=== PATIENT | female | born 1995 | race Caucasian/White ===

== ENCOUNTER 2021-01-13 17:05 | Emergency (ER) | payer OTHER ==
[~2021-01-13] VITALS: Ht 167.6 cm; Wt 63.5 kg
[2021-01-13] MEDS ORDERED: ONDANSETRON ODT8 MG PO (19:26)
== END 2021-01-13 20:06 | disposition home or self-care (01) ==
LOC: ED 17:05
DX: S06.0X9A Concussion with loss of consciousness of unspecified duration, initial encounter (principal); F41.9 Anxiety disorder, unspecified; S80.212A Abrasion, left knee, initial encounter; S40.212A Abrasion of left shoulder, initial encounter; S70.211A Abrasion, right hip, initial encounter; V49.9XXA Car occupant (driver) (passenger) injured in unspecified traffic accident, initial encounter
CPT/HCPCS: 80053; 83690; 85025; 96374; 96375; 99284-25; J2060; J2405; J7030

== ENCOUNTER 2024-03-05 23:36 | Inpatient (IN) | payer OTHER ==
[~2024-03-05] VITALS: Ht 167.6 cm; Wt 91.6 kg
[~2024-03-05 23:36] MED LIST: ONDANSETRON ODT8 MG PO
[2024-03-06] MEDS ORDERED: CALCIUM CARBONATE 500 MG CHEW PO PRN (00:15)
[2024-03-06] MEDS ORDERED: OXYTOCIN/DEXTROSE 5% 20 UNITS/100 ML BAG IV SCH (00:15)
[2024-03-06] MEDS ORDERED: MAGNESIUM HYDROXIDE/AL HYDROX 30 ML CUP PO PRN (00:15)
[2024-03-06 00:28] LABS: HEMATOCRIT 36.3 % (35.0-50.0); HEMOGLOBIN 12.5 g/dL (12.0-18.0); MCHC 34.5 g/dl (30-36); MCV 86.9 fl (81-99); RBC 4.18 M/ul (4.3-5.7); RDW 14.3 (10.5-15.0)
[2024-03-06 00:48] LABS: AMPHETAMINES, URINE NEGATIVE (NEGATIVE); BARBITURATES, URINE NEGATIVE (NEGATIVE); BENZODIAZEPINE, URINE NEGATIVE (NEGATIVE); BUPRENORPHINE, URINE NEGATIVE (NEGATIVE); CANNABINOID, URINE NEGATIVE (NEGATIVE); COCAINE, URINE NEGATIVE (NEGATIVE); ECSTASY, URINE NEGATIVE (NEGATIVE); FENTANYL, URINE NEGATIVE (NEGATIVE); METHADONE, URINE NEGATIVE (NEGATIVE); OPIATES, URINE NEGATIVE (NEGATIVE); OXYCODONE, URINE NEGATIVE (NEGATIVE); PHENCYCLIDINE, URINE NEGATIVE (NEGATIVE)
[2024-03-06 00:57] VITALS: BP 129/78
[2024-03-06 01:08] LABS: ABO A; ANTIBODY SCREEN NEGATIVE; RH NEGATIVE
[2024-03-06] MEDS ORDERED: LACTATED RINGER'S 1,000 ML IV SCH (02:00)
[2024-03-06] MEDS ORDERED: LACTATED RINGER'S 1,000 ML IV PRN (02:00)
[2024-03-06] MEDS ORDERED: ROPIVACAINE 0.2% 200 ML BAG ONE (02:25)
[2024-03-06] MEDS ORDERED: ePHEDrine sulfate 5 MG/ML SYRINGE IV PRN (03:15)
[2024-03-06] MEDS ORDERED: ROPIVACAINE 0.2% 200 ML BAG EPIDURAL SCH (03:15)
[2024-03-06] MEDS ORDERED: LACTATED RINGER'S 500 ML IV PRN (03:15)
[2024-03-06] MEDS ORDERED: LACTATED RINGER'S 2,000 ML IV ONE (03:15)
[2024-03-06] MEDS ORDERED: OXYTOCIN/0.9 % SODIUM CHLORIDE 500 ML IV SCH ×2 (07:30→09:45)
[2024-03-06] MEDS ORDERED: IBUPROFEN 600 MG TAB PO PRN (09:45)
[2024-03-06] MEDS ORDERED: MAGNESIUM HYDROXIDE 30 ML UDC PO PRN (09:45)
[2024-03-06] MEDS ORDERED: ACETAMINOPHEN 325 MG TAB PO PRN (09:45)
[2024-03-06] MEDS ORDERED: WITCH HAZEL/GLYCERIN 1 EA PAD TOP PRN (09:45)
[2024-03-06] MEDS ORDERED: BENZOCAINE 60 ML AEROSOL TOP PRN (09:45)
[2024-03-06] MEDS ORDERED: HYDROCORTISONE ACETATE 25 MG SUPP PR PRN (09:45)
[2024-03-06] MEDS ORDERED: HYDROCODONE/ACETA 5/325 TAB PO PRN (09:45)
[2024-03-07 05:57] LABS: HEMATOCRIT 29.5 % (35.0-50.0); MCH 30.3 (27-36); MCHC 33.9 g/dl (30-36); MCV 89.4 fl (81-99); RBC 3.3 M/ul (4.3-5.7); RDW 14.6 (10.5-15.0)
[2024-03-07 07:20] LABS: ABO A; ANTIBODY SCREEN NEGATIVE; FETAL HEMOGLOBIN SCREEN NEGATIVE; RH NEGATIVE; RHIG DOSE 1; RHIG STATUS CANDIDATE; RHIG VIAL 1 RG23O03-R
--- NOTE | 2024-03-07 07:26 | PR ---
[facility] [address] [facility] [address] [facility] [place], [place] [address] Signed PP Progress Notes Datetime Report Generated by CPN: 03/07/2024 07:26 SUBJECTIVE: [id number] Pain: Within Normal Limits Vital Signs: [id number] Vital Signs: Reviewed; Within Normal Limits EXAM: Ongoing Cardiovascular: Not Done Respiratory: Not Done Abdomen/Uterus: Abnormal Lochia: Normal Vulva/Perineum: Normal Breasts: Not Done CVA Tenderness: Not Done Extremities: Normal Incision: Not Applicable Progress: Abnormal Exam Comments: Fundus firm, NT @ U-2. H/H 04/19.5, WBC 13.7, plat 142k IMPRESSION/PLAN/PROCEDURES: [id number] Impression: Normal Progression; Difficulties Plan: Consult Progress Notes: Tired and breast feeding not going well. I think she would benefit from another day of rest w/ help. Her vulvar swelling has resolved but no void as yet. Thrombocytopenia--min changed from admit. Suspect gestational thrombocytopenia. Signing Physician: Lakeshia Morales MD Copies: ~ *Electronically Signed* 03/07/24 0726 LAKESHIA MORALES MD PATIENT NAME: NAYANA VYAS PROGRESS NOTE DATE OF : 89 PHYSICIAN: LAKESHIA MORALES MD RPT #: [id number] REPORT IS CONFIDENTIAL AND NOT TO BE RELEASED WITHOUT AUTHORIZATION
--- NOTE | 2024-03-08 07:14 | PR ---
[facility] [address] [facility] [place], [place] [address] Signed PP Progress Notes Datetime Report Generated by CPN: 03/08/2024 07:14 SUBJECTIVE: [id number] Pain: Within Normal Limits Vital Signs: [id number] Vital Signs: Reviewed; Within Normal Limits EXAM: Ongoing Cardiovascular: Not Done Respiratory: Not Done Abdomen/Uterus: Abnormal Lochia: Normal Vulva/Perineum: Not Done Breasts: Not Done CVA Tenderness: Not Done Extremities: Normal Incision: Not Applicable Progress: Abnormal Exam Comments: Fundus firm, NT @ U-2. IMPRESSION/PLAN/PROCEDURES: [id number] Impression: Normal Progression; Difficulties Plan: Discharge Procedures: Rhogam Progress Notes: Feeling much better today. She got some rest. She is still having issues with but feels better about this. Signing Physician: Lakeshia Morales MD Copies: ~ *Electronically Signed* 03/08/24713 LAKESHIA MORALES MD PATIENT NAME: NAYANA VYAS PROGRESS NOTE DATE OF : [birth year] PHYSICIAN: LAKESHIA MORALES MD RPT #: [id number] REPORT IS CONFIDENTIAL AND NOT TO BE RELEASED WITHOUT AUTHORIZATION
== END 2024-03-08 13:05 | disposition home or self-care (01) | DRG 807 ==
LOC: FBCO 23:36 → FBC 23:38
PROVIDERS: ADMIT Obstetrics & Gynecology; ATTEND Obstetrics & Gynecology
PROC: 10E0XZZ Delivery of Products of Conception, External Approach (ICD-10-PCS; principal; 2024-03-06)
PROC: 0KQM0ZZ Repair Perineum Muscle, Open Approach (ICD-10-PCS; 2024-03-06)
PROC: 3E0R3BZ Introduction of Anesthetic Agent into Spinal Canal, Percutaneous Approach (ICD-10-PCS; 2024-03-06)
PROC: 00HU33Z Insertion of Infusion Device into Spinal Canal, Percutaneous Approach (ICD-10-PCS; 2024-03-06)
PROC: 10907ZC Drainage of Amniotic Fluid, Therapeutic from Products of Conception, Via Natural or Artificial Opening (ICD-10-PCS; 2024-03-06)
DX: O63.1 Prolonged second stage (of labor) (principal); Z37.0 Single live birth; Z3A.40 40 weeks gestation of pregnancy; O48.0 Post-term pregnancy; O77.0 Labor and delivery complicated by meconium in amniotic fluid; O70.1 Second degree perineal laceration during delivery
CPT/HCPCS: 01960; 36415; 80307; 83030; 85027; 86850; 86900; 86901; A9270; J2790; J7121

== ENCOUNTER 2024-04-03 04:26 | Emergency (ER) | payer OTHER ==
[~2024-04-03] VITALS: Ht 167.6 cm; Wt 79.0 kg
[2024-04-03 04:57] LABS: BASOPHILS 0.5 % (0-2); EOSINOPHILS 2.3 % (0-6); HEMATOCRIT 37.1 % (35.0-50.0); HEMOGLOBIN 12.8 g/dL (12.0-18.0); MCH 30.1 (27-36); MCHC 34.5 g/dl (30-36); MCV 87.2 fl (81-99); NEUTROPHILS 73.2 % (39-80); PLATELET COUNT 192 K/uL (140-440); RBC 4.25 M/ul (4.3-5.7); RDW 14.1 (10.5-15.0)
[2024-04-03] MEDS ORDERED: HYDROCODON-ACE1 EA10 PO ×2 (04:58→07:31)
[2024-04-03] MEDS ORDERED: IBUPROFEN600 MG PO (04:58)
[2024-04-03] MEDS ORDERED: FAMOTIDINE 20 MG/ 2 ML VIAL IV ONE (05:00)
[2024-04-03] MEDS ORDERED: MORPHINE SULFATE 4 MG/ML VIAL IV ONE (05:00)
[2024-04-03 05:15] LABS: ALBUMIN 3.6 g/dL (3.4-5.0); ALKALINE PHOSPHATASE 82 U/L (46-116); ALT (SGPT) 21 U/L (14-59); ANION GAP 15.1 (7-21); AST (SGOT) 13 U/L (15-37); BILIRUBIN, TOTAL 0.9 ng/dL (0.2-1.0); BUN/CREATININE RATIO 16.17 (6.0-28.6); CALCIUM 9.1 mg/dL (8.5-10.1); CARBON DIOXIDE 25 mmol/L (21-32); CHLORIDE 103 mmol/L (98-107); CREATININE, SERUM 0.68 mg/dL (0.55-1.02); GLOMERULAR FILTRATION RATE,EST 122 mL/min (>60); POTASSIUM 4.1 mmol/L (3.5-5.1); PROTEIN, TOTAL 7.2 g/dL (6.4-8.2); UREA NITROGEN 11 mg/dL (7-18)
[2024-04-03] MEDS ORDERED: HYDROmorphone HCL 1 MG/ML SYR IV PRN (06:00)
[2024-04-03] MEDS ORDERED: ELIQUIS5 MG PO (07:29)
[2024-04-03] MEDS ORDERED: APIXABAN 5 MG TAB PO ONE (07:30)
[2024-04-03 07:49] VITALS: BP 103/89
--- NOTE | 2024-04-04 07:59 | EKG ---
[facility] [address] [facility] [place] [address] Signed Normal sinus rhythm Normal ECG No previous ECGs available Confirmed by Cindy Garcia MD () on 04/04/2024 7:59:41 AM Electronically Signed By: CINDY GARCIA MD 04/04/24 0759 PATIENT NAME: NAYANA VYAS Electrocardiogram DATE OF : [birth year] PHYSICIAN: CINDY GARCIA MD REPORT #: [id number] REPORT IS CONFIDENTIAL AND NOT TO BE RELEASED WITHOUT AUTHORIZATION
== END 2024-04-03 07:49 | disposition home or self-care (01) ==
LOC: ED 04:26
PROVIDERS: Internal Medicine
DX: O88.23 Thromboembolism in the puerperium (principal)
CPT/HCPCS: 36415; 71045; 71260; 80053; 84484; 84703; 85025; 85379; 93005; 93010; 96375; 99285-25; J2270; Q9967